=== PATIENT | female | born 1970 | race Caucasian/White ===

== ENCOUNTER 2020-03-02 04:21 | Emergency (ER) | payer BC ==
[~2020-03-02] VITALS: Ht 175.3 cm; Wt 104.3 kg
[2020-03-02 04:29] VITALS: Ht 175.3 cm; Wt 104.3 kg
[2020-03-02 08:42] VITALS: BP 112/79
== END 2020-03-02 08:42 | disposition home or self-care (01) ==
LOC: ED 04:21
DX: S82.851A Displaced trimalleolar fracture of right lower leg, initial encounter for closed fracture (principal); J45.909 Unspecified asthma, uncomplicated; I10 Essential (primary) hypertension; Z88.1 Allergy status to other antibiotic agents; W05.0XXA Fall from non-moving wheelchair, initial encounter; Y93.89 Activity, other specified; Y92.89 Other specified places as the place of occurrence of the external cause; Y99.8 Other external cause status
CPT/HCPCS: J3490; J7030; Q0092